=== PATIENT | male | born 1940 | race Caucasian/White ===

== ENCOUNTER 2016-07-11 14:31 | Emergency (ER) | payer MEDICARE, OTHER ==
[~2016-07-11] VITALS: Ht 182.9 cm; Wt 117.0 kg
[~2016-07-11 14:31] MED LIST: ASCO1TAB2 PO; ASPI-496 PO; ATEN50TA41 PO; ATOR40TA78 PO; CA C1TAB28 PO; CA C1TAB63 PO; CARV12.52 PO; FELO10TA PO; FENO145T32 PO; HYDR25TA6 PO; LEVO200T PO; LOSA100T6 PO; METF500T4 PO; OMEP20TA2 PO; TERA5CAP3 PO; VALS160T3 PO; VIT1TABL3 PO; [UNRECOGNIZED DRUG - CODE] PO
[2016-07-11] MEDS ORDERED: ASPIRIN 81 MG TABLET CHEW PO ONE (15:00)
[2016-07-11] MEDS ORDERED: SODIUM CHLORIDE 0.9% 1,000ML IVBOLUS ONE (15:00)
[2016-07-11 15:18] LABS: HEMOGLOBIN 13.5 g/dL (13.7-18.0)
[2016-07-11 15:30] LABS: ASPARTATE AMINO TRANSFERASE 48 U/L (15-37); BLOOD UREA NITROGEN 43 mg/dL (7-18)
[2016-07-11] MEDS ORDERED: SODIUM CHLORIDE 0.9% 1,000 ML IV ONE (15:30)
[2016-07-11 15:38] LABS: IS PT STATUS REG ER OR PRE ER? YES
[2016-07-11] MEDS ORDERED: ASPIRIN 81 MG TABLET CHEW ONE ×2 (15:41→15:43)
[2016-07-11 17:06] VITALS: BP 172/93
== END 2016-07-11 17:08 | disposition home or self-care (01) ==
LOC: ED 16:40
DX: R55 Syncope and collapse (principal); I12.9 Hypertensive chronic kidney disease with stage 1 through stage 4 chronic kidney disease, or unspecified chronic kidney disease; N18.9 Chronic kidney disease, unspecified; E86.0 Dehydration; E11.9 Type 2 diabetes mellitus without complications; E78.5 Hyperlipidemia, unspecified; E03.9 Hypothyroidism, unspecified
CPT/HCPCS: 36415; 71010; 80053; 84484; 85025; 85610; 93005; 96360; 99285; J7030

== ENCOUNTER → 2016-07-20 | Outpatient (CLI) | payer MEDICARE, OTHER | END | disposition home or self-care (01) | LOC: CFH 09:44 → EDSTATUS 10:30 | PROVIDERS: ATTEND Nurse Practitioner Primary Care | DX: I65.22 Occlusion and stenosis of left carotid artery (principal); I07.1 Rheumatic tricuspid insufficiency; I34.0 Nonrheumatic mitral (valve) insufficiency; I37.1 Nonrheumatic pulmonary valve insufficiency; I35.1 Nonrheumatic aortic (valve) insufficiency | CPT/HCPCS: 93306; 93880 ==

== ENCOUNTER 2017-04-15 20:06 | Emergency (ER) | payer MEDICARE, OTHER ==
[~2017-04-15] VITALS: Ht 182.9 cm; Wt 125.0 kg
[~2017-04-15 20:06] MED LIST changes: -OMEP20TA2 PO; +OMEP20TA9 PO
[2017-04-15 21:24] LABS: BASOPHILS # (AUTO) 0.05 x10^3/uL (0-0.1); BASOPHILS % (AUTO) 1 % (0-1); EOSINOPHILS # (AUTO) 0.08 x10^3/uL (0-0.4); EOSINOPHILS % (AUTO) 1 % (1-7); LYMPHOCYTES # (AUTO) 0.53 x10^3/uL (1-3.4); LYMPHOCYTES % (AUTO) 7 % (22-44); MD NO; MEAN CORPUSCULAR HEMOGLOBIN 31.1 pg (27.5-34.5); MEAN CORPUSCULAR HGB CONC 34.1 g/dL (33.2-36.2); MEAN CORPUSCULAR VOLUME 90.9 fL (81-97); MEAN PLATELET VOLUME 11.1 fL (7.4-10.4); MONOCYTES # (AUTO) 1.06 x10^3/uL (0.2-0.8); MONOCYTES % (AUTO) 14 % (2-9); NEUTROPHILS # (AUTO) 5.97 x10^3/uL (1.8-6.8); NEUTROPHILS % (AUTO) 78 % (42-75); PLATELET COUNT 127 x10^3/uL (130-400); RED BLOOD COUNT 4.27 x10^6/uL (4.38-5.82); RED CELL DISTRIBUTION WIDTH 13.2 % (9.4-14.8)
[2017-04-15 21:33] LABS: ALBUMIN 3.6 g/dL (3.4-5.0); ANION GAP 6 mmol/L (5-15); CALCIUM 9.1 mg/dL (8.5-10.1); CHLORIDE 102 mmol/L (98-107)
[2017-04-15 21:37] LABS: TROPONIN I < 0.015 ng/mL (0.000-0.045)
[2017-04-15 23:04] VITALS: BP 121/70
== END 2017-04-15 23:06 | disposition home or self-care (01) ==
LOC: ED 20:44
DX: J20.8 Acute bronchitis due to other specified organisms (principal); K21.9 Gastro-esophageal reflux disease without esophagitis; E03.9 Hypothyroidism, unspecified; E11.9 Type 2 diabetes mellitus without complications; E78.5 Hyperlipidemia, unspecified; I10 Essential (primary) hypertension; J44.0 Chronic obstructive pulmonary disease with (acute) lower respiratory infection; Z90.49 Acquired absence of other specified parts of digestive tract; Z96.653 Presence of artificial knee joint, bilateral
CPT/HCPCS: 36415; 80048; 82040; 83880; 84484; 85025; 93005; 99285

== ENCOUNTER → 2017-10-01 | Outpatient (CLI) | payer MEDICARE, OTHER | LOC: CFH 08:59 | PROVIDERS: ATTEND Nurse Practitioner Primary Care | DX: G95.29 Other cord compression (principal); M54.31 Sciatica, right side | CPT/HCPCS: 72100 ==

== ENCOUNTER → 2017-10-10 | Outpatient (CLI) | payer MEDICARE, OTHER ==
[~2017-10-10] MED LIST changes: -METF500T4 PO; +METF500T5 PO
== END | disposition home or self-care (01) ==
LOC: CFH 06:42
PROVIDERS: ATTEND Nurse Practitioner Primary Care
DX: M51.36 Other intervertebral disc degeneration, lumbar region (principal); M54.31 Sciatica, right side; R60.9 Edema, unspecified
CPT/HCPCS: 72148

== ENCOUNTER → 2018-02-08 | Outpatient (CLI) | payer MEDICARE, OTHER ==
[~2018-02-08] MED LIST changes: -LOSA100T6 PO; +LOSA100T7 PO; +METF500T17 PO; -METF500T5 PO
== END | disposition home or self-care (01) ==
LOC: CFH 08:44
PROVIDERS: ATTEND Nurse Practitioner Primary Care
DX: I25.2 Old myocardial infarction (principal); E78.2 Mixed hyperlipidemia; R93.1 Abnormal findings on diagnostic imaging of heart and coronary circulation; R53.83 Other fatigue
CPT/HCPCS: 78452; 93017; A9502

== ENCOUNTER 2018-04-26 07:38 | Day surgery (SDC) | payer MEDICARE, OTHER ==
[~2018-04-26] VITALS: Ht 185.4 cm; Wt 123.0 kg
[2018-04-26 09:12] VITALS: BP 154/85
[2018-04-26] MEDS ORDERED: NIFE30TA13 PO (09:21)
[2018-04-26] MEDS ORDERED: ROSU20TA PO (09:21)
[2018-04-26] MEDS ORDERED: HYDR25TA6 PO (09:23)
[2018-04-26 09:32] LABS: BASOPHILS # (AUTO) 0.06 x10^3/uL (0-0.1); BASOPHILS % (AUTO) 1 % (0-1); EOSINOPHILS # (AUTO) 0.31 x10^3/uL (0-0.4); EOSINOPHILS % (AUTO) 5 % (1-7); LYMPHOCYTES # (AUTO) 1.47 x10^3/uL (1-3.4); LYMPHOCYTES % (AUTO) 23 % (22-44); MD NO; MEAN CORPUSCULAR HEMOGLOBIN 30.6 pg (27.5-34.5); MEAN CORPUSCULAR VOLUME 92.8 fL (81-97); MEAN PLATELET VOLUME 11.6 fL (7.4-10.4); MONOCYTES % (AUTO) 13 % (2-9); NEUTROPHILS % (AUTO) 59 % (42-75); PLATELET COUNT 155 x10^3/uL (130-400); RED BLOOD COUNT 4.26 x10^6/uL (4.38-5.82); RED CELL DISTRIBUTION WIDTH 13.2 % (9.4-14.8)
[2018-04-26 09:44] LABS: CALCIUM 9.4 mg/dL (8.5-10.1)
[2018-04-26] MEDS ORDERED: SODIUM CHLORIDE 0.9% 1,000 ML IV ONE (10:00)
[2018-04-26 10:14] LABS: ANION GAP 5 mmol/L (5-15); CHLORIDE 103 mmol/L (98-107); CREATININE 0.87 mg/dL (0.7-1.3)
[2018-04-26] MEDS ORDERED: MIDAZOLAM 1 MG/ML, 2ML ONE ×2 (10:50→11:20)
[2018-04-26] MEDS ORDERED: FENTANYL PF 100 MCG/2ML ONE (10:50)
[2018-04-26] MEDS ORDERED: VERAPAMIL 2.5 MG/ML, 2ML ONE ×2 (10:51→11:10)
[2018-04-26] MEDS ORDERED: HEPARIN 1,000 UNITS/ML, 10ML ONE (10:51)
[2018-04-26] MEDS ORDERED: ACETAMINOPHEN 325 MG TABLET PO PRN (12:00)
[2018-04-26] MEDS ORDERED: SODIUM CHLORIDE 0.9% 1,000 ML IV SCH (13:00)
== END 2018-04-26 14:52 | disposition home or self-care (01) ==
LOC: CACL 07:38
PROVIDERS: ATTEND Internal Medicine Cardiovascular Disease
DX: I25.10 Atherosclerotic heart disease of native coronary artery without angina pectoris (principal); E11.9 Type 2 diabetes mellitus without complications; I10 Essential (primary) hypertension; E78.2 Mixed hyperlipidemia; Z88.8 Allergy status to other drugs, medicaments and biological substances; Z90.49 Acquired absence of other specified parts of digestive tract; Z98.890 Other specified postprocedural states; Z79.84 Long term (current) use of oral hypoglycemic drugs
CPT/HCPCS: 36415; 80048; 85025; 93458; 99156; C1769; C1894; J1644; J2250; J3010; Q9967